=== PATIENT | female | born 1955 | race Two or more races ===

== ENCOUNTER → 2024-09-27 | Outpatient (CLI) | payer MEDICARE, BC, SELFPAY ==
[2024-09-27 14:29] LABS: Basophils % (Auto) 1 % (0-2.5); Eosinophils # (Auto) 0.1 Thou/mm3 (0.0-0.5); Eosinophils % (Auto) 1 % (0-10); Hematocrit 35.6 % (36.0-46.0); Hemoglobin 12.2 g/dL (12.0-16.0); Immature Granulocytes % (Auto) 0 % (0-0); Immature Granulocytes Auto 0.02 Thou/mm3 (0.00-0.00); Lymphocytes # (Auto) 1.5 Thou/mm3 (1.0-4.8); Lymphocytes % (Auto) 22 % (10-50); Mean Corpuscular HGB Conc 34.3 g/dl (31.0-37.0); Mean Corpuscular Volume 93 fL (80-100); Monocytes # (Auto) 0.5 Thou/mm3 (0.0-0.8); Monocytes % (Auto) 8 % (0-12); Neutrophils # (Auto) 4.6 Thou/mm3 (1.8-7.7); Neutrophils % (Auto) 68 % (37-80); Nucleated Red Blood Cell % 0 /100 WBC (0); RDW Standard Deviation 41.1 fL (36.4-46.3); Red Blood Count 3.81 Miln/mm3 (4.00-5.20); White Blood Count 6.8 Thou/mm3 (3.6-11.0)
[2024-09-27 15:08] LABS: Alanine Aminotransferase 43 U/L (10-49); Albumin, Serum 4.2 gm/dL (3.4-4.8); Albumin/Globulin Ratio 2.3 (1.2-2.2); Alkaline Phosphatase 46 U/L (46-116); Anion Gap 9 (7-16); Aspartate Amino Transferase 47 U/L (0-34); BUN/Creatinine Ratio 13 Ratio (12-20); Bilirubin,Total 0.2 mg/dL (0.3-1.2); Blood Urea Nitrogen 12 mg/dL (9-23); Calcium 9.5 mg/dL (8.3-10.6); Calcium (Corrected) 9.5 mg/dL (8.5-10.1); Carbon Dioxide 23.4 mMol/L (20.0-31.0); Chloride 103 mMol/L (98-107); Creatinine (Component) 0.9 mg/dL (0.6-1.3); Globulin 1.8 gm/dL (2.3-3.5); Glucose 212 mg/dL (74-106); Osmolality,Calculated 275 (275-295); Potassium 4.5 mMol/L (3.4-5.1); Sodium 135 mMol/L (136-145); eGFR > 60 See Note
[2024-09-27 15:42] LABS: CA 15-3 4.5 U/mL (<32.4); Carcinoembryonic Antigen 1.8 ng/mL (0.0-5.0)
[2024-09-27 16:33] LABS: Platelet Count 177 Thou/mm3 (140-440)
== END | disposition home or self-care (01) ==
PROVIDERS: Referring Provider Nurse Practitioner Family; Visit Provider Nurse Practitioner Family
DX: C50.211 Malignant neoplasm of upper-inner quadrant of right female breast (principal)
CPT/HCPCS: 36415; 80053; 82378; 85025; 86300

== ENCOUNTER 2024-10-02 15:00 | Outpatient (RCR) | payer MEDICARE, BC, SELFPAY ==
--- NOTE | 2024-10-03 01:23 | CTCFLWUP_ITS ---
Patient: JULIANNE JACOBO : 1955 Page 6 of 7 FOLLOW UP NOTE DATE OF SERVICE: 10/02/2024 NAME: JLUIANNE JACOBO ACCOUNT: [id number] : 1955 AGE: 69 INTERVAL HISTORY: ONCOLOGY HISTORY: DIAGNOSIS: Malignant neoplasm of upper-inner quadrant of right female breast [ICD10] C50.211 DATE OF DIAGNOSIS: 11/09/2020 STAGE/TNM: Stage I T1 N0 M0 ER/FL positive HER2 is negative TREATMENT HISTORY: Care?Plan Start?Date Cycle Day Intent HISTORY OF PRESENT ILLNESS: PREVIOUS NOTES: Julianne Jacobo is a 69-year-old ENG speaking female with following history. 30 years ago in patient had a brain tumor removed. According to her it was a malignant tumor. Patient had surgery followed by radiation therapy in [place]. I do not have the pathology report. 11/09/2020: Patient had mammograms done in [place]. It apparently showed an asymmetric density in the right breast. Mammograms were done in [place]. Are not available to me. 12/04/2020: Right breast ultrasound? 01/06/2021: Patient had core needle biopsy of the right breast abnormality? 02/08/2021: Patient had right breast lumpectomy and sentinel lymph node biopsy? 04/08/2021: Oncotype DX recurrence score 7. 04/12/2021: Patient started taking anastrozole 1 mg p.o. daily. 04/26/2021: Patient is started on radiation therapy to the right breast. 05/06/2021: Bone density test? 05/24/2022: DEXA scan 02/28/2024: Bilateral mammogram [id number] Category 2, benign no evidence of malignancy, 1 year screening mammogram recommended. 03/01/2024: DEXA-normal mineralization lumbar spine, osteoporosis on hip measurements, lumbar mineraliz ation increased 3.2%, hip mineralization decreased 2.8%. OTHER MEDICAL HISTORY/CONDITIONS: FAMILY HISTORY: ?Clone Family Hx? 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 alendronate - 35 mg 1 tab one tab po q weekly 2. aspirin - 81 mg 1 Capsule As directed 3. atorvastatin - 20 mg Daily 4. Calcium Plus - 600 mg calcium- 400 unit 1.5 tab Daily 5. donepezil - 10 mg 1 tab Every day before sleep 6. latanoprost - As directed 7. lisinopril - 20 mg 1 tab Daily 8. memantine - 5 mg 2 tab Daily 9. metformin - 500 mg Daily 10. multivitamin - 1 Capsule Daily 11. tamoxifen - 20 mg 1 tab one tab po q daily?[facility] Meds? Medications Last Reconciled by Juliana Jaime MA on 10/02/2024 ALLERGIES: No Known Drug Allergies REVIEW OF SYSTEMS: A complete 14-point review of systems was performed and is negative except as noted in interval histo ry. PHYSICAL EXAMINATION: VITAL SIGNS: PAIN: 0 - No pain ECOG Performance Status: 0 - Asymptomatic and fully active GENERAL APPEARANCE: Appears well, in no apparent distress, appropriately interactive. HEENT: Normocephalic, no temporal wasting, normal conjunctiva, no scleral icterus, normal hearing, li ps without lesions, neck normal range of motion. CARDIOVASCULAR: Not assessed. PULMONARY: Normal respiratory effort, no respiratory distress or use of accessory muscles, speaking i n full sentences, no tachypnea. EXTREMITIES: No pedal edema or cyanosis. SKIN: Normal skin appearance. NEUROLOGIC: Alert and oriented x4. PSHYCHIATRIC: Appropriate affect, mood normal, behavior normal, intact thought and speech. LABORATORY DATA: I have personally reviewed and interpreted each of the patient?s relevant lab tests, abnormal finding s are below: Date 09/27/24 ??GLUCOSE,RANDOM?(mg/dL) 212?H ??BLOOD?UREA?NITROGEN?(mg/dL) 12 ??CREATININE?(mg/dL) 0.90 ??SODIUM?(mmol/L) 135?L ??POTASSIUM?(mmol/L) 4.5 ??CHLORIDE?(mmol/L) 103 ??CrCl?(CandG)?(ml/min) 70.80 ??AST/SGOT?(Unit/L) 47?H ??ALT/SGPT?(Unit/L) 43 ??ALKALINE?PHOSPHATASE?(Unit/L) 46 ??BILIRUBIN,?TOTAL?(mg/dL) 0.2?L ??PROTEIN?TOTAL?(gm/dl) 6.0 ??ALBUMIN,?SERUM?(gm/dl) 4.2 ??GLOBULIN?(gm/dl) 1.8?L ??ALBUMIN/GLOBULIN?RATIO 2.3?H ??CALCIUM,?SERUM?(mg/dL) 9.5 ??CALCIUM?SERUM?(CORRECTED)?(mg/dL) 9.5 ASSESSMENT/PLAN: #1 stage I t1 cN0 M0 ER positive FL positive 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 s/p lumpectomy a nd radiation Patient is on tamoxifen as she is osteoporotic Patient is tolerating it well #2 osteoporosis Patient takes calcium and vitamin D she also takes Fosamax for her osteoporosis she takes only 35 mg She has restricted movement at her hips She has dementia and have surgery as a child on her cerebellum She have frequent falls and is very restricted in movement Last bone density showed decrease in bone density in the hips and improvement in the lumbar spine and will benefit from physical therapy Advised to give calcium and vitamin D with fatty food Increase Fosamax to 70 mg weekly Advised to see dentist and once cleared will start on Prolia or Zometa Follow with the primary care for other chronic medical problems MRI brain with contrast to make sure patient do not have any metastatic disease and to evaluate for h er reason for instability CBC CMP RETURN TO CLINIC: 6 months BILLING AND COMPLIANCE: I reviewed external records from providers outside my specialty as summarized above. I spent a total of 50 minutes on this patient?s care on the day of their visit excluding time spent related to any bi lled procedures. This time includes time spent with the patient as well as time spent documenting in the medical record, reviewing patients records and tests, obtaining history, placing orders, communi cating with other healthcare professionals, counseling the patient, family or caregiver, and/or care coordination for the diagnoses above. Electronically Signed by: Nikhil Mejia MD T: 1:21 AM CC: PCP: Yasmany Doss Referring: Nelly Abebe This document was completed utilizing speech recognition software. Grammatical errors, random word in sertions, pronoun errors, and incomplete sentences are an occasional consequence of this system due t o software limitations, ambient noise, and hardware issues. Any formal questions or concerns about th e content, text or information contained within the body of this dictation should be directly address ed to the provider for clarification.
== END 2024-10-25 23:59 | disposition home or self-care (01) ==
LOC: SCTC 15:00
PROVIDERS: PCP Physician Assistant Medical; Referring Provider Internal Medicine; Visit Provider Internal Medicine Hematology & Oncology
DX: C50.211 Malignant neoplasm of upper-inner quadrant of right female breast (principal); Z17.0 Estrogen receptor positive status [ER+]; Z17.21 Progesterone receptor positive status; Z85.841 Personal history of malignant neoplasm of brain; Z17.32 Human epidermal growth factor receptor 2 negative status; Z90.11 Acquired absence of right breast and nipple; Z79.810 Long term (current) use of selective estrogen receptor modulators (SERMs); M81.0 Age-related osteoporosis without current pathological fracture; Z79.83 Long term (current) use of bisphosphonates; F03.90 Unspecified dementia, unspecified severity, without behavioral disturbance, psychotic disturbance, mood disturbance, and anxiety
CPT/HCPCS: Q3014

== ENCOUNTER 2025-02-27 13:46 | Outpatient (RCR) | payer MEDICARE, BC, SELFPAY ==
--- NOTE | 2025-02-27 16:45 | CTCFLWUP_ITS ---
Patient: JULIANNE JACOBO : 1955 Page 2 of 2 FOLLOW UP NOTE DATE OF SERVICE: 02/27/2025 NAME: JULIANNE JACOBO ACCOUNT: [id number] : 1955 AGE: 69 INTERVAL HISTORY: Subjective: Chief Complaint Follow-up for breast cancer, vascular dementia, balance issues, weight gain, hearing decline, dental issues History of Present Illness Julianne is a patient with a history of breast cancer and vascular dementia presenting for follow-up. She reports feeling so-so and has not noticed any unusual lumps or bumps in her breast or axilla. Julianne's overall health status has been declining yearly due to her vascular dementia. Her balance has deteriorated, impacting her mobility. She gained 20 pounds during the COVID pandemic, further affecting her ability to move around. Julianne now uses a walker at home and requires a wheelchair for appointments. Her hearing has also declined, and she has seen an insulation blanket maker for this issue. The patient continues to take tamoxifen as prescribed, currently in her 5th year of treatment. She stopped taking alendronate in September due to dental issues. Julianne is scheduled for an abscessed tooth extraction next month. Her caregiver reports that Mignons cognitive function has been declining, but they keep her mentally stimulated through activities such as laundry sorting and folding, which she finds challenging and engaging. Mignons diet is managed by her caregiver, Toi, who cooks for her during the week, with additional help on weekends. Despite her limitations, Julianne remains active at home, participating in household tasks that provide mental stimulation. Medications and Supplements - Tamoxifen - On 5th year of treatment - Advised to avoid during long travels to prevent blood clots - Multivitamin (like Centrum Silver) - Vitamin D - Alendronate - Discontinued in September due to dental issues Review of Systems General: Positive for weight gain. HEENT: Positive for hearing decline. Musculoskeletal: Positive for balance issues. Neurological: Positive for declining cognitive function. Objective: Physical Examination Musculoskeletal: Patient uses a walker at home and a wheelchair for appointments, indicating mobility limitations. Laboratory, Imaging, and Diagnostic Test Results - Date: Not specified - CBC: Hemoglobin normal, WBC good - Blood glucose: Slightly elevated - Oncotype DX score: 7 ONCOLOGY HISTORY: DIAGNOSIS: Malignant neoplasm of upper-inner quadrant of right female breast [ICD10] C50.211 DATE OF DIAGNOSIS: 11/09/2020 STAGE/TNM: Stage I T1 N0 M0 ER/FL positive HER2 is negative TREATMENT HISTORY: Care?Plan Start?Date Cycle Day Intent HISTORY OF PRESENT ILLNESS: PREVIOUS NOTES: Julianne Jacobo is a 69-year-old ENG speaking female with following history. 30 years ago in 1980s patient had a brain tumor removed. According to her it was a malignant tumor. Patient had surgery followed by radiation therapy in [place]. I do not have the pathology report. 11/09/2020: Patient had mammograms done in [place]. It apparently showed an asymmetric density in the right breast. Mammograms were done in [place]. Are not available to me. 12/04/2020: Right breast ultrasound? 01/06/2021: Patient had core needle biopsy of the right breast abnormality? 02/08/2021: Patient had right breast lumpectomy and sentinel lymph node biopsy? 04/08/2021: Oncotype DX recurrence score 7. 04/12/2021: Patient started taking anastrozole 1 mg p.o. daily. 04/26/2021: Patient is started on radiation therapy to the right breast. 05/06/2021: Bone density test? 05/24/2022: DEXA scan 02/28/2024: Bilateral mammogram [id number] Category 2, benign no evidence of malignancy, 1 year screening mammogram recommended. 03/01/2024: DEXA-normal mineralization lumbar spine, osteoporosis on hip measurements, lumbar mineralization increased 3.2%, hip mineralization decreased 2.8%. 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 aspirin - 81 mg 1 Capsule As directed 2. atorvastatin - 20 mg Daily 3. Calcium Plus - 600 mg calcium- 400 unit 1.5 tab Daily 4. donepezil - 10 mg 1 tab Every day before sleep 5. Fosamax - 70 mg Daily 6. latanoprost - As directed 7. lisinopril - 20 mg 1 tab Daily 8. memantine - 5 mg 2 tab Daily 9. metformin - 500 mg Daily 10. multivitamin - 1 Capsule Daily 11. tamoxifen - 20 mg 1 tab Daily Medications Last Reconciled by Whitley Luciano MA on 02/27/2025 ALLERGIES: No Known Drug Allergies REVIEW OF SYSTEMS: A complete 14-point review of systems was performed and is negative except as noted in interval history. PHYSICAL EXAMINATION: VITAL SIGNS: Temperature?98.2, B/P?104/61, Oxygen?Saturation?98% PAIN: 0 - No pain ECOG Performance Status: 0 - Asymptomatic and fully active GENERAL APPEARANCE: Appears well, in no apparent distress, appropriately interactive. HEENT: Normocephalic, no temporal wasting, normal conjunctiva, no scleral icterus, normal hearing, lips without lesions, neck normal range of motion. CARDIOVASCULAR: Not assessed. PULMONARY: Normal respiratory effort, no respiratory distress or use of accessory muscles, speaking in full sentences, no tachypnea. EXTREMITIES: No pedal edema or cyanosis. SKIN: Normal skin appearance. NEUROLOGIC: Alert and oriented x4. PSHYCHIATRIC: Appropriate affect, mood normal, behavior normal, intact thought and speech. LABORATORY DATA: I have personally reviewed and interpreted each of the patient?s relevant lab tests, abnormal findings are below: Date 12/13/23 09/27/24 ??WHITE?BLOOD?COUNT?(Thou/mm3) 6.3 6.8 ??RED?BLOOD?COUNT?(Miln/mm3) 4.00 3.81?L ??HEMOGLOBIN?(gm/dl) 12.2 12.2 ??HEMATOCRIT?(%) 37.6 35.6?L ??PLATELET?COUNT?(Thou/mm3) 262 177 ??NEUTROPHILS?%,?AUTO?(%) 69 68 ??LYMPH?%,?AUTO?(%) 21 22 ??NEUTROPHILS,?AUTO?(Thou/mm3) 4.3 4.6 ??GLUCOSE,RANDOM?(mg/dL) ? 212?H ??BLOOD?UREA?NITROGEN?(mg/dL) ? 12 ??CREATININE?(mg/dL) ? 0.90 ??SODIUM?(mmol/L) ? 135?L ??POTASSIUM?(mmol/L) ? 4.5 ??CHLORIDE?(mmol/L) ? 103 ??CrCl?(CandG)?(ml/min) ? 70.80 ??AST/SGOT?(Unit/L) ? 47?H ??ALT/SGPT?(Unit/L) ? 43 ??ALKALINE?PHOSPHATASE?(Unit/L) ? 46 ??BILIRUBIN,?TOTAL?(mg/dL) ? 0.2?L ??PROTEIN?TOTAL?(gm/dl) ? 6.0 ??ALBUMIN,?SERUM?(gm/dl) ? 4.2 ??GLOBULIN?(gm/dl) ? 1.8?L ??ALBUMIN/GLOBULIN?RATIO ? 2.3?H ??CALCIUM,?SERUM?(mg/dL) ? 9.5 ??CALCIUM?SERUM?(CORRECTED)?(mg/dL) ? 9.5 ??CEA?(O*)?(ng/ml) ? 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 s/p lumpectomy and radiation Patient is on tamoxifen as she is osteoporotic Patient is tolerating it well #2 osteoporosis Patient takes calcium and vitamin D She has restricted movement at her hips She has dementia and have surgery as a child on her cerebellum She have frequent falls and is very restricted in movement Last bone density showed decrease in bone density in the hips and improvement in the lumbar spine and will benefit from physical therapy Advised to give calcium and vitamin D with fatty food Hold Fosamax as planned for dental procedure / last dose in 09/2024 Breast Cancer Assessment: Julianne is in her 5th year of tamoxifen therapy for stage one breast cancer. Her oncotype DX score was 7, indicating a low risk of recurrence. She has been compliant with her medication regimen and has not reported any new lumps or bumps in her breast or axilla. The plan is to continue tamoxifen for one more year, completing a total of 6 years of therapy. Plan: - Continue tamoxifen for one more year, stopping in December 2025 - Advise to avoid tamoxifen during long travels to prevent blood clots - Instruct to continue self-examinations for any new lumps or bumps in breast or axilla - Schedule follow-up appointment in one year for reassessment and discontinuation of tamoxifen Vascular Dementia Assessment: Julianne has a known diagnosis of vascular dementia with progressive decline noted yearly. She experiences balance issues and cognitive impairment affecting her daily activities. Mental stimulation is crucial for maintaining cognitive function. Currently, she engages in activities such as laundry sorting and folding, which provide some level of cognitive challenge. Plan: - Encourage continued engagement in stimulating activities (e.g., laundry sorting, matching patterned socks) - Explore options for adult daycare to provide additional mental stimulation - Continue monitoring cognitive function and balance during follow-up visits Mobility Issues Assessment: Mignons mobility has declined, partly due to a 20-pound weight gain during the COVID-19 pandemic. She currently uses a walker at home and a wheelchair for appointments. Her balance issues are likely related to her vascular dementia. Plan: - Encourage weight loss through dietary modifications and increased physical activity as tolerated - Continue use of mobility aids (walker at home, wheelchair for appointments) as needed - Monitor for further changes in mobility during follow-up visits Osteoporosis Management Assessment: Alendronate was discontinued in September due to dental issues. Julianne is scheduled for an abscessed tooth extraction next month. Consideration for restarting osteoporosis treatment will be made after her dental health improves. Plan: - Continue vitamin D supplementation - Reassess dental health 6 months after tooth extraction - Discuss restarting osteoporosis treatment at that time, pending dental health status - Do not restart treatment without clinician review and approval Hearing Decline Assessment: Julianne has experienced hearing decline and has been evaluated by an insulation blanket maker. Plan: - Continue monitoring hearing status - Ensure follow-up with insulation blanket maker as recommended Laboratory Abnormalities Assessment: Recent laboratory results show normal hemoglobin and white blood cell counts. However, blood glucose levels are slightly elevated. Plan: - Start daily multivitamin (e.g., Centrum Silver) - Monitor blood glucose levels at future visits - Encourage dietary modifications to help manage blood sugar levels ORDERS: Order # Description [id number] Vitamin B-12 + Folic Acid; Serum [id number] 3D Mammogram Screening + Bilateral [id number] MD Follow Up 6 Month RETURN TO CLINIC: BILLING AND COMPLIANCE: I reviewed external records from providers outside my specialty as summarized above. I spent a total of 50 minutes on this patient?s care on the day of their visit excluding time spent related to any billed procedures. This time includes time spent with the patient as well as time spent documenting in the medical record, reviewing patients records and tests, obtaining history, placing orders, communicating with other healthcare professionals, counseling the patient, family or caregiver, and/or care coordination for the diagnoses above. Electronically Signed by: Nikhil Mejia MD T: 4:41 PM CC: PCP: Yasmany Doss Referring: Goldie Machuca This document was completed utilizing speech recognition software. Grammatical errors, random word insertions, pronoun errors, and incomplete sentences are an occasional consequence of this system due to software limitations, ambient noise, and hardware issues. Any formal questions or concerns about the content, text or information contained within the body of this dictation should be directly addressed to the provider for clarification.
== END 2025-03-24 23:59 | disposition home or self-care (01) ==
LOC: SCTC 13:46
PROVIDERS: PCP Physician Assistant Medical; Referring Provider Physician Assistant Medical; Visit Provider Internal Medicine Hematology & Oncology
DX: C50.811 Malignant neoplasm of overlapping sites of right female breast (principal); Z17.0 Estrogen receptor positive status [ER+]; Z17.21 Progesterone receptor positive status; Z17.32 Human epidermal growth factor receptor 2 negative status; Z92.3 Personal history of irradiation; Z90.11 Acquired absence of right breast and nipple; Z79.810 Long term (current) use of selective estrogen receptor modulators (SERMs); M81.0 Age-related osteoporosis without current pathological fracture; F01.50 Vascular dementia, unspecified severity, without behavioral disturbance, psychotic disturbance, mood disturbance, and anxiety; R73.9 Hyperglycemia, unspecified
CPT/HCPCS: 99212; G0463

== ENCOUNTER → 2025-09-03 | Outpatient (CLI) | payer MEDICARE, BC, SELFPAY ==
[2025-09-03 14:43] LABS: Folate 21.38 ng/mL (>5.38); Vitamin B12 > 2000 pg/mL (211-911)
== END | disposition home or self-care (01) ==
LOC: SCTO 13:39
PROVIDERS: Referring Provider Internal Medicine Hematology & Oncology; Visit Provider Internal Medicine Hematology & Oncology
DX: C50.211 Malignant neoplasm of upper-inner quadrant of right female breast (principal)
CPT/HCPCS: 36415; 82607; 82746

== ENCOUNTER 2025-09-04 14:58 | Outpatient (RCR) | payer MEDICARE, BC, SELFPAY ==
--- NOTE | 2025-09-28 23:37 | CTCFLWUP_ITS ---
Patient: JULIANNE JACOBO : 1955 Page 7 of 8 FOLLOW UP NOTE DATE OF SERVICE: 09/04/2025 NAME: JULIANNE JACOBO ACCOUNT: [id number] : 1955 AGE: 70 INTERVAL HISTORY:`` Doing well with no new complaints ONCOLOGY HISTORY: DIAGNOSIS: Malignant neoplasm of upper-inner quadrant of right female breast [ICD10] C50.211 DATE OF DIAGNOSIS: 11/09/2020 STAGE/TNM: Stage I T1 N0 M0 ER/MO positive HER2 is negative TREATMENT HISTORY: Care?Plan Start?Date Cycle Day Intent HISTORY OF PRESENT ILLNESS: PREVIOUS NOTES: Julianne Jacobo is a 70-year-old ENG speaking female with following history. 30 years ago in patient had a brain tumor removed. According to her it was a malignant tumor. Patient had surgery followed by radiation therapy in [place]. I do not have the pathology report. 11/09/2020: Patient had mammograms done in [place]. It apparently showed an asymmetric density in the right breast. Mammograms were done in [place]. Are not available to me. 12/04/2020: Right breast ultrasound? 01/06/2021: Patient had core needle biopsy of the right breast abnormality? 02/08/2021: Patient had right breast lumpectomy and sentinel lymph node biopsy? 04/08/2021: Oncotype DX recurrence score 7. 04/12/2021: Patient started taking anastrozole 1 mg p.o. daily. 04/26/2021: Patient is started on radiation therapy to the right breast. 05/06/2021: Bone density test? 05/24/2022: DEXA scan 02/28/2024: Bilateral mammogram [id number] Category 2, benign no evidence of malignancy, 1 year screening mammogram recommended. 03/01/2024: DEXA-normal mineralization lumbar spine, osteoporosis on hip measurements, lumbar mineralization increased 3.2%, hip mineralization decreased 2.8%. 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 aspirin - 81 mg 1 Capsule As directed 2. atorvastatin - 20 mg Daily 3. Calcium Plus - 600 mg calcium- 400 unit 1.5 tab Daily 4. donepezil - 10 mg 1 tab Every day before sleep 5. Fosamax - 70 mg Daily 6. latanoprost - As directed 7. lisinopril - 20 mg 1 tab Daily 8. memantine - 5 mg 2 tab Daily 9. metformin - 500 mg Daily 10. multivitamin - 1 Capsule Daily 11. tamoxifen - 20 mg 1 tab Daily Medications Last Reconciled by Juliana Cifuentes MD on 09/04/2025 ALLERGIES: No Known Drug Allergies REVIEW OF SYSTEMS: A complete 14-point review of systems was performed and is negative except as noted in interval history. PHYSICAL EXAMINATION: VITAL SIGNS: Temperature?97.3, B/P?116/75, Oxygen?Saturation?98% Weight?155?lbs PAIN: 0 - No pain ECOG Performance Status: None GENERAL APPEARANCE: Appears well, in no apparent distress, appropriately interactive. HEENT: Normocephalic, no temporal wasting, normal conjunctiva, no scleral icterus, normal hearing, lips without lesions, neck normal range of motion. CARDIOVASCULAR: Not assessed. PULMONARY: Normal respiratory effort, no respiratory distress or use of accessory muscles, speaking in full sentences, no tachypnea. EXTREMITIES: No pedal edema or cyanosis. SKIN: Normal skin appearance. NEUROLOGIC: Alert and oriented x4. PSHYCHIATRIC: Appropriate affect, mood normal, behavior normal, intact thought and speech. LABORATORY DATA: I have personally reviewed and interpreted each of the patient?s relevant lab tests, abnormal findings are below: Date 12/13/23 09/27/24 ??WHITE?BLOOD?COUNT?(Thou/mm3) 6.3 6.8 ??RED?BLOOD?COUNT?(Miln/mm3) 4.00 3.81?L ??HEMOGLOBIN?(gm/dl) 12.2 12.2 ??HEMATOCRIT?(%) 37.6 35.6?L ??PLATELET?COUNT?(Thou/mm3) 262 177 ??NEUTROPHILS?%,?AUTO?(%) 69 68 ??LYMPH?%,?AUTO?(%) 21 22 ??NEUTROPHILS,?AUTO?(Thou/mm3) 4.3 4.6 ??GLUCOSE,RANDOM?(mg/dL) ? 212?H ??BLOOD?UREA?NITROGEN?(mg/dL) ? 12 ??CREATININE?(mg/dL) ? 0.90 ??SODIUM?(mmol/L) ? 135?L ??POTASSIUM?(mmol/L) ? 4.5 ??CHLORIDE?(mmol/L) ? 103 ??CrCl?(CandG)?(ml/min) ? 70.80 ??AST/SGOT?(Unit/L) ? 47?H ??ALT/SGPT?(Unit/L) ? 43 ??ALKALINE?PHOSPHATASE?(Unit/L) ? 46 ??BILIRUBIN,?TOTAL?(mg/dL) ? 0.2?L ??PROTEIN?TOTAL?(gm/dl) ? 6.0 ??ALBUMIN,?SERUM?(gm/dl) ? 4.2 ??GLOBULIN?(gm/dl) ? 1.8?L ??ALBUMIN/GLOBULIN?RATIO ? 2.3?H ??CALCIUM,?SERUM?(mg/dL) ? 9.5 ??CALCIUM?SERUM?(CORRECTED)?(mg/dL) ? 9.5 ??CEA?(O*)?(ng/ml) ? 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 Patient is on tamoxifen as she is osteoporotic Patient is tolerating it well #2 osteoporosis Patient takes calcium and vitamin D She has restricted movement at her hips She has dementia and have surgery as a child on her cerebellum She have frequent falls and is very restricted in movement Last bone density showed decrease in bone density in the hips and improvement in the lumbar spine and will benefit from physical therapy Advised to give calcium and vitamin D with fatty food Hold Fosamax as planned for dental procedure / last dose in 09/2024 Breast Cancer Assessment: Julianne is in her 5th year of tamoxifen therapy for stage one breast cancer. Her oncotype DX score was 7, indicating a low risk of recurrence. She has been compliant with her medication regimen and has not reported any new lumps or bumps in her breast or axilla. The plan is to continue tamoxifen for one more year, completing a total of 6 years of therapy. Plan: - Continue tamoxifen for now, stopping in December 2025 - Advise to avoid tamoxifen during long travels to prevent blood clots - Instruct to continue self-examinations for any new lumps or bumps in breast or axilla - Schedule follow-up appointment in one year for reassessment and discontinuation of tamoxifen Vascular Dementia Assessment: Julianne has a known diagnosis of vascular dementia with progressive decline noted yearly. She experiences balance issues and cognitive impairment affecting her daily activities. Mental stimulation is crucial for maintaining cognitive function. Currently, she engages in activities such as laundry sorting and folding, which provide some level of cognitive challenge. Plan: - Encourage continued engagement in stimulating activities (e.g., laundry sorting, matching patterned socks) - Explore options for adult daycare to provide additional mental stimulation - Continue monitoring cognitive function and balance during follow-up visits Mobility Issues Assessment: Mignons mobility has declined, partly due to a 20-pound weight gain during the COVID-19 pandemic. She currently uses a walker at home and a wheelchair for appointments. Her balance issues are likely related to her vascular dementia. Plan: - Encourage weight loss through dietary modifications and increased physical activity as tolerated - Continue use of mobility aids (walker at home, wheelchair for appointments) as needed - Monitor for further changes in mobility during follow-up visits Osteoporosis Management Assessment: Alendronate was discontinued in September due to dental issues. Julianne is scheduled for an abscessed tooth extraction next month. Consideration for restarting osteoporosis treatment will be made after her dental health improves. Plan: - Continue vitamin D supplementation - Reassess dental health 6 months after tooth extraction - Discuss restarting osteoporosis treatment at that time, pending dental health status - Do not restart treatment without clinician review and approval Hearing Decline Assessment: Julianne has experienced hearing decline and has been evaluated by an wrapper stemmer operator. Plan: - Continue monitoring hearing status - Ensure follow-up with wrapper stemmer operator as recommended Laboratory Abnormalities Assessment: Recent laboratory results show normal hemoglobin and white blood cell counts. However, blood glucose levels are slightly elevated. Plan: - Start daily multivitamin (e.g., Centrum Silver) - Monitor blood glucose levels at future visits - Encourage dietary modifications to help manage blood sugar levels ORDERS: Order # Description [id number] Comprehensive Metabolic Panel - 12 + CBC with Auto Diff [id number] Follow Up 6 Month RETURN TO CLINIC: I reviewed the diagnosis, prognosis, and recommended treatment/procedure options with the patient (and/or their legal territory service representative), including the potential benefits, risks, side effects and alternative therapies. We also discussed the option of no treatment and the possibility of clinical trial participation, if applicable. All questions were addressed, and they demonstrated understanding. They provided informed consent to proceed with the proposed plan of care. BILLING AND COMPLIANCE: I reviewed external records from providers outside my specialty as summarized above. I spent a total of 50 minutes on this patient?s care on the day of their visit excluding time spent related to any billed procedures. This time includes time spent with the patient as well as time spent documenting in the medical record, reviewing patients records and tests, obtaining history, placing orders, communicating with other healthcare professionals, counseling the patient, family or caregiver, and/or care coordination for the diagnoses above. Electronically Signed by: {Object.Sanct_ID*PnP.NameFL@M}, {Object.Sanct_ID*PnP.Suffix@U} D: {Object.Sanct_Date} T: {Object.Sanct_Time} CC: PCP: Yasmany Doss Referring: Nikhil Mejia This document was completed utilizing speech recognition software. Grammatical errors, random word insertions, pronoun errors, and incomplete sentences are an occasional consequence of this system due to software limitations, ambient noise, and hardware issues. Any formal questions or concerns about the content, text or information contained within the body of this dictation should be directly addressed to the provider for clarification.
== END 2025-09-24 23:59 | disposition home or self-care (01) ==
LOC: SCTC 14:58
PROVIDERS: PCP Physician Assistant Medical; Referring Provider Internal Medicine Hematology & Oncology; Visit Provider Internal Medicine Hematology & Oncology
DX: C50.811 Malignant neoplasm of overlapping sites of right female breast (principal); Z17.0 Estrogen receptor positive status [ER+]; Z17.21 Progesterone receptor positive status; Z17.32 Human epidermal growth factor receptor 2 negative status; Z90.11 Acquired absence of right breast and nipple; Z92.3 Personal history of irradiation; Z79.810 Long term (current) use of selective estrogen receptor modulators (SERMs); M81.0 Age-related osteoporosis without current pathological fracture; F01.50 Vascular dementia, unspecified severity, without behavioral disturbance, psychotic disturbance, mood disturbance, and anxiety; R26.89 Other abnormalities of gait and mobility
CPT/HCPCS: 99212; G0463